=== PATIENT | female | born 1955 | race Caucasian/White ===

== ENCOUNTER → 2022-01-27 | Outpatient (CLI) | payer MEDICARE, BC ==
[~2022-01-27] MED LIST: CATHETER FLUSH 10 ML SYR IV PRN; HOLD METFORMIN - RECEIVED CONTRAST 20 ML VIAL IV SCH; IOHEXOL 350 MG/ML 100 ML (OMNIPAQUE 350) VIAL IV ONE; NS 100 ML (IVPB) BAG IV ONE
[2022-01-27 13:59] LABS: POTASSIUM 3.4 MMOL/L (3.6-5.0)
[2022-01-27 14:00] LABS: CALCIUM 9.4 MG/DL (8.5-10.1); CREATININE SERUM 0.68 MG/DL (0.60-1.30)
--- NOTE | 2022-01-27 15:01 | Diagnostic Imaging Report ---
PROCEDURE: CT angiography of the chest with contrast. TECHNIQUE: Multiple contiguous axial images were obtained through the chest after uneventful bolus administration of intravenous contrast. 3D reconstructed CTA MIP acquisitions were also performed. Auto Exposure Controls were utilized during the CT exam to meet ALARA standards for radiation dose reduction. INDICATION: Chest tightness. FINDINGS: The pulmonary arterial branches are well opacified and widely patent with no filling defect. No evidence for PE. The thoracic aorta is patent, nonaneurysmal, and nonacute. No mural hemorrhage, dissection, aneurysm, or rupture. There are post operative changes about the stomach as well as presumed post interventional changes to the biliary system accounting for pneumobilia in the visualized anti-dependent liver. There is a small hiatal hernia. There is no pneumothorax. The patient's lungs are clear. There is emphysematous air trapping, symmetric. No findings of edema or pneumonia. No lung mass. No thoracic adenopathy. IMPRESSION: 1. Negative for PE or acute aortic disease. Clear emphysematous lungs. No acute appearing cardiopulmonary abnormality. 2. Partially visualized post surgical changes to the upper abdomen. Dictated by: Dictated on workstation # [id number]
== END ==
LOC: LAB FS 13:19
PROVIDERS: ATTEND Nurse Practitioner Family
DX: R06.02 Shortness of breath (principal); R07.89 Other chest pain
CPT/HCPCS: 36415; 71275; 80048; Q9967

== ENCOUNTER → 2022-10-02 | Outpatient (CLI) | payer MEDICARE, BC ==
--- NOTE | 2022-10-02 10:00 | Diagnostic Imaging Report ---
PROCEDURE: CT abdomen and pelvis without contrast. TECHNIQUE: Multiple contiguous axial images were obtained through the abdomen and pelvis without the use of intravenous contrast. Auto Exposure Controls were utilized during the CT exam to meet ALARA standards for radiation dose reduction. INDICATION: Lower abdominal pain and hematuria. No prior studies are available for comparison. Imaging through the lung bases demonstrates the lung bases to be clear. There appear to be postoperative changes of the GE junction. Liver does contain significant pneumobilia, perhaps owing to incompetent sphincter. No liver mass is identified. Gallbladder appears to be surgically absent. The pancreas and spleen are unremarkable. No adrenal mass is detected. Right kidney is unremarkable. Left kidney does contain nonobstructing calculi, largest approximately 10 x 4 mm. No definite ureteral calculi are seen. The bladder is significantly obscured by beam hardening artifact from patient's bilateral hip prostheses. Patient appears to have a pessary in the midline pelvis. Aorta is calcified but nonaneurysmal. Bowel loops are normal in caliber. There is no obstruction. No free fluid is seen. There is no fluid collection. IMPRESSION: 1. Left-sided nonobstructing nephrolithiasis. No definite ureteral calculi or hydronephrosis is identified. Note is made that the distal ureters and bladder are largely obscured by artifact from bilateral hip prostheses. Dictated by: Dictated on workstation # [id number]
== END ==
LOC: RAD FS 09:03
PROVIDERS: ATTEND Nurse Practitioner Family
DX: N20.0 Calculus of kidney (principal); Z96.643 Presence of artificial hip joint, bilateral
CPT/HCPCS: 74176